=== PATIENT | male | born 1940 | race Caucasian/White ===

== ENCOUNTER 2018-12-25 09:39 | Emergency (ER) | payer SELFPAY ==
[2018-12-25 10:21] LABS: EOS # 0.1 (0.04-0.40); EOS % 0.8 % (0.0-4.0); HEMATOCRIT 46.5 % (42.0-52.0); HEMOGLOBIN 15.6 g/dL (13.5-18.0); MEAN CELL VOLUME 90 fl (78-100); MEAN CORPUSCULAR HEMOGLOBIN 30 pg (27-31); MEAN CORPUSCULAR HGB CONC 34 g/dL (33-37); MEAN PLATELET VOLUME 10.8 fl (7.4-10.4); MONO # 0.4 (0.20-0.80); NEU # 4.8 (1.40-6.50); PLATELET COUNT 196 K/mm3 (130-400); RED BLOOD COUNT 5.16 M/mm3 (4.20-5.60); RED CELL DISTRIBUTION WIDTH 13.7 % (11.5-14.5); WHITE BLOOD COUNT 6.3 K/mm3 (4.8-10.8)
[2018-12-25 10:28] LABS: POTASSIUM 3.5 mmol/L (3.5-5.1); SODIUM 142 mmol/L (136-145)
[2018-12-25 10:29] LABS: CALCIUM 10.1 mg/dL (8.3-10.5)
[2018-12-25 10:30] LABS: GLUCOSE 108 mg/dL (75-110)
[2018-12-25 10:31] LABS: CARBON DIOXIDE 25 mmol/L (23-31); PROTHROMBIN TIME 11.3 SECONDS (9.0-12.0); TOTAL PROTEIN 7.2 g/dL (6.2-8.1)
[2018-12-25 10:34] LABS: ALCOHOL IN-HOUSE < 10 mg/dL (<10)
[2018-12-25 10:36] LABS: AST-SGOT 19 U/L (5-34)
[2018-12-25 10:37] LABS: ALT/SGPT 25 U/L (0-55)
[2018-12-25 10:38] LABS: ACETAMINOPHEN < 1 ug/mL
[2018-12-25 10:48] LABS: TOTAL BILIRUBIN 1.1 mg/dL (0.2-1.2)
[2018-12-25 10:58] LABS: TROPONIN-I < 0.03 ng/mL (<0.030)
[2018-12-25 11:07] LABS: PH-URINE 7.5 (5.0 - 8.0); URINE APPEARANCE CLEAR; URINE BILIRUBIN NEGATIVE (NEGATIVE); URINE BLOOD NEGATIVE (NEGATIVE); URINE COLOR YELLOW; URINE GLUCOSE NEGATIVE (NEGATIVE); URINE KETONE NEGATIVE (NEGATIVE); URINE LEUKOCYTE ESTERASE NEGATIVE (NEGATIVE); URINE MUCUS PRESENT (NOT PRESENT); URINE NITRATE NEGATIVE (NEGATIVE); URINE PROTEIN(semi-quant) NEGATIVE (NEGATIVE); URINE UROBILINOGEN NORMAL (NORMAL); URINE WBC 0-1 /hpf (0-3)
[2018-12-25] MEDS ORDERED: ARICEPT5 M1 PO (12:46)
[2018-12-25] MEDS ORDERED: ATORVASTATIN CA10 MG PO (12:46)
[2018-12-25] MEDS ORDERED: LISINOPRIL10 MG PO (12:47)
[2018-12-25] MEDS ORDERED: MEDI-FIRST ASP325 MG PO (12:47)
[2018-12-25] MEDS ORDERED: THIAMINE HCL100 M1 PO (12:47)
[2018-12-25] MEDS ORDERED: MIRALAX17 GM PO (12:48)
[2018-12-25] MEDS ORDERED: DOCUSATE SOD100 MG PO (12:48)
[2018-12-25] MEDS ORDERED: NORVASC 10MG10 MG PO (12:48)
[2018-12-25 15:30] VITALS: BP 146/94
== END 2018-12-25 14:45 | disposition other institution (70) ==
LOC: ED 09:39
PROVIDERS: Nurse Practitioner Primary Care
DX: I16.0 Hypertensive urgency (principal); F03.90 Unspecified dementia, unspecified severity, without behavioral disturbance, psychotic disturbance, mood disturbance, and anxiety; I10 Essential (primary) hypertension; Z79.82 Long term (current) use of aspirin; Z86.73 Personal history of transient ischemic attack (TIA), and cerebral infarction without residual deficits

== ENCOUNTER 2018-12-25 14:36 | Observation (INO) | payer MEDICARE, OTHER ==
[~2018-12-25] VITALS: Ht 185.4 cm; Wt 83.8 kg
[~2018-12-25 14:36] MED LIST: ARICEPT5 M1 PO; ATORVASTATIN CA10 MG PO; DOCUSATE SOD100 MG PO; LISINOPRIL10 MG PO; MEDI-FIRST ASP325 MG PO; MIRALAX17 GM PO; NORVASC 10MG10 MG PO; THIAMINE HCL100 M1 PO
[2018-12-25 15:18] VITALS: BP 146/94
[2018-12-25 15:20] VITALS: BP 146/94
[2018-12-25 18:25] VITALS: BP 149/85
[2018-12-25 22:56] VITALS: BP 139/77
[2018-12-26] VITALS (8 sets, daily range): BP systolic 127–168; BP diastolic 81–99
[2018-12-27 03:31] VITALS: BP 161/105
[2018-12-27 06:27] VITALS: BP 114/76
[2018-12-27 11:08] VITALS: BP 126/74
[2018-12-27 15:16] VITALS: BP 126/75
[2018-12-27 18:07] VITALS: BP 138/81
[2018-12-27 23:39] VITALS: BP 153/92
[2018-12-28] VITALS (10 sets, daily range): BP systolic 108–170; BP diastolic 71–100
[2018-12-29 03:20] VITALS: BP 128/78
[2018-12-29 06:19] VITALS: BP 146/95
[2018-12-29 11:00] VITALS: BP 152/87
[2018-12-29 15:20] VITALS: BP 116/69
[2018-12-29 18:17] VITALS: BP 133/73
[2018-12-29 23:16] VITALS: BP 124/73
[2018-12-30 03:09] VITALS: BP 135/84
[2018-12-30 06:16] VITALS: BP 146/88
[2018-12-30 11:01] VITALS: BP 142/85
[2018-12-30 14:57] VITALS: BP 137/82
[2018-12-30 18:33] VITALS: BP 133/85
[2018-12-30 23:01] VITALS: BP 147/90
[2018-12-31 03:10] VITALS: BP 136/87
[2018-12-31 06:00] VITALS: BP 180/95
[2018-12-31 11:25] VITALS: BP 126/79
[2018-12-31 15:09] VITALS: BP 139/87
[2018-12-31 18:30] VITALS: BP 118/78
[2018-12-31 23:00] VITALS: BP 122/78
[2019-01-01 02:47] VITALS: BP 149/88
[2019-01-01 06:12] VITALS: BP 118/83
[2019-01-01 08:19] VITALS: BP 133/90
[2019-01-01 10:53] VITALS: BP 122/76
[2019-01-01] MEDS ORDERED: ARICEPT5 M1 PO (11:03)
[2019-01-01] MEDS ORDERED: ATORVASTATIN CA10 MG PO (11:04)
[2019-01-01] MEDS ORDERED: NORVASC 10MG10 MG PO (11:04)
[2019-01-01] MEDS ORDERED: ZESTRIL30 MG PO (11:05)
[2019-01-01] MEDS ORDERED: HCTZ 25MG25 MG PO (11:05)
[2019-01-01] MEDS ORDERED: ASPIRIN 32325 MG/TAB PO (11:05)
[2019-01-01] MEDS ORDERED: DOCUSATE SOD100 MG PO (11:07)
[2019-01-01] MEDS ORDERED: MIRALAX17 GM PO (11:07)
[2019-01-01 11:46] VITALS: BP 122/76
== END 2019-01-01 14:58 ==
LOC: MED/SURG 14:36
PROVIDERS: ADMIT Nurse Practitioner Primary Care
DX: I16.0 Hypertensive urgency (principal); F44.89 Other dissociative and conversion disorders; F03.90 Unspecified dementia, unspecified severity, without behavioral disturbance, psychotic disturbance, mood disturbance, and anxiety; Z86.73 Personal history of transient ischemic attack (TIA), and cerebral infarction without residual deficits; Z79.899 Other long term (current) drug therapy; Z79.82 Long term (current) use of aspirin; Z87.891 Personal history of nicotine dependence
CPT/HCPCS: G0378; J1650